=== PATIENT | male | born 1960 | race Caucasian/White ===

== ENCOUNTER 2017-09-15 09:21 | Inpatient (IN) | payer MEDICAID ==
[~2017-09-15] VITALS: Ht 182.9 cm; Wt 91.0 kg
[2017-09-15] MEDS ORDERED: ipratropium/albuterol 3ml nebule NEB ONE (09:50)
[2017-09-15 09:54] LABS: BASOPHILS % (AUTO) 0.6 % (0-1); EOSINOPHILS # (AUTO) 0.1 X10'3 (0-0.9); HEMOGLOBIN 12.8 g/dl (14.0-17.9); LYMPHOCYTES % (AUTO) 13.8 % (21-51); MEAN CORPUSCULAR HGB CONC 33.7 % (33.0-36.5); MEAN PLATELET VOLUME 8.1 FL (7.4-10.4); MONOCYTES # (AUTO) 0.7 X10'3 (0-0.9); MONOCYTES % (AUTO) 9.1 % (2-12); NEUTROPHILS # (AUTO) 5.6 X10'3 (1.8-7.7); NEUTROPHILS % (AUTO) 74.5 % (42-75); PLATELET COUNT 287 X10'3 (140-440); RED BLOOD COUNT 4.41 X10'6 (4.70-6.10); RED CELL DISTRIBUTION WIDTH 14.8 % (11.5-14.5); WHITE BLOOD COUNT 7.4 X10'3 (4.5-11.0)
[2017-09-15 10:09] LABS: ALANINE AMINOTRANSFERASE 39 U/L (12-78); ALBUMIN/GLOBULIN RATIO 0.7 (1.1-1.5); ALKALINE PHOSPHATASE 66 IU/L (46-116); ANION GAP 8 (8-16); ASPARTATE AMINO TRANSFERASE 34 U/L (10-37); BILIRUBIN,TOTAL 0.5 MG/DL (0.1-1.0); BLOOD UREA NITROGEN 28 MG/DL (7-18); BUN/CREATININE RATIO 18.1 (5.4-32.0); CALCIUM 9.2 MG/DL (8.5-10.1); CHLORIDE 105 MMOL/L (99-107); CREATININE 1.55 MG/DL (0.60-1.10); GLUCOSE 124 MG/DL (70-104); POTASSIUM 4.4 MMOL/L (3.5-5.1); SODIUM 140 MMOL/L (135-145); TOTAL CARBON DIOXIDE 26.7 MMOL/L (24-32); TOTAL PROTEIN 7.3 G/DL (6.4-8.2); eGFR 47 ML/MIN
[2017-09-15 10:50] LABS: D-DIMER 1.21 MG/L FEU (0-0.50)
[2017-09-15] MEDS ORDERED: levoFLOXACIN-Levaquin 500mg/D5 100 ML IV ONE (11:40)
[2017-09-15] MEDS ORDERED: levoFLOXACIN-Levaquin 500mg/D5 100 ML IV SCH (12:00)
[2017-09-15] MEDS ORDERED: potassium Cl 40MEQ/NS 500ml 500 ML IV PRN ×2 (12:00)
[2017-09-15] MEDS ORDERED: magnesium 2GM in 50ml NS 50 ML IV PRN (12:00)
[2017-09-15] MEDS ORDERED: ondansetron/PF 4mg/2ml inj IV PRN (12:00)
[2017-09-15] MEDS ORDERED: acetaminophen 325mg tablet PO PRN (12:00)
[2017-09-15] MEDS ORDERED: potassium Cl 20 mEq SR tablet PO PRN ×2 (12:00)
[2017-09-15] MEDS ORDERED: magnesium Cl slow-release 64mg tablet PO PRN (12:00)
[2017-09-15] MEDS ORDERED: mag hydrox/Alum hydrox/simeth 30ml oral suspension PO PRN (12:00)
[2017-09-15] MEDS ORDERED: magnesium 4gm in 100ml NS 100 ML IV PRN (12:00)
[2017-09-15] MEDS ORDERED: magnesium hydroxide 30ml (MOM) UD suspension PO PRN (12:00)
[2017-09-15] MEDS ORDERED: NO HOME MEDS (12:11)
[2017-09-15] MEDS: levoFLOXACIN-Levaquin 500mg/D5 100 ML IV SCH (14:15)
[2017-09-15] MEDS: lisinopril 5mg tablet PO SCH (18:37)
[2017-09-15] MEDS ORDERED: heparin 10,000 units/1 ML INJ IV ONE (18:45)
[2017-09-15] MEDS ORDERED: morphine 4 MG/ML inj SYRINge IV ONE (18:45)
[2017-09-15] MEDS ORDERED: aspirin 81mg tab.chew PO ONE (18:45)
[2017-09-15 19:23] LABS: PARTIAL THROMBOPLASTIN TIME 31 SECONDS (22-32)
[2017-09-15 19:30] VITALS: BP 158/100
[2017-09-15] MEDS: carVEDilol 3.125mg tablet PO SCH (19:51)
[2017-09-15] MEDS: furosemide 40mg/4ml inj IV SCH (19:51)
[2017-09-15] MEDS ORDERED: furosemide 20 MG/2 ML vial IV SCH (20:00)
[2017-09-15] MEDS: heparin, porcine 5000 units/ml vial SQ SCH (20:00)
[2017-09-15 22:01] LABS: URINE AMPHETAMINE SCREEN NEGATIVE (Neg); URINE BARBITUATE SCREEN NEGATIVE (Neg); URINE BENZODIAZEPINES SCREEN NEGATIVE (Neg); URINE CANNABINOID SCREEN NEGATIVE (Neg); URINE COCAINE SCREEN NEGATIVE (Neg); URINE METHADONE SCREEN NEGATIVE (Neg); URINE OPIATE SCREEN POSITIVE (Neg); URINE PHENCYCLIDINE SCREEN NEGATIVE (Neg)
[2017-09-15 23:00] VITALS: BP 134/87
[2017-09-15] MEDS: HYDROcodone/acetaminophen 10/325mg tab PO PRN (23:53)
[2017-09-16 03:00] VITALS: BP 135/87
[2017-09-16 06:00] VITALS: BP 129/97
[2017-09-16 06:04] LABS: BASOPHILS % (AUTO) 0.7 % (0-1); EOSINOPHILS # (AUTO) 0.3 X10'3 (0-0.9); EOSINOPHILS % (AUTO) 4.2 % (0-6); HEMATOCRIT 36.7 % (42.0-52.0); HEMOGLOBIN 12.4 g/dl (14.0-17.9); LYMPHOCYTES # (AUTO) 1.6 X10'3 (1.1-4.8); LYMPHOCYTES % (AUTO) 21.5 % (21-51); MEAN CORPUSCULAR HEMOGLOBIN 29.2 PG (27.0-31.0); MEAN CORPUSCULAR HGB CONC 33.7 % (33.0-36.5); MEAN CORPUSCULAR VOLUME 86.6 FL (78-98); MEAN PLATELET VOLUME 7.9 FL (7.4-10.4); MONOCYTES # (AUTO) 0.7 X10'3 (0-0.9); MONOCYTES % (AUTO) 9.8 % (2-12); NEUTROPHILS # (AUTO) 4.6 X10'3 (1.8-7.7); NEUTROPHILS % (AUTO) 63.8 % (42-75); PLATELET COUNT 281 X10'3 (140-440); RED BLOOD COUNT 4.23 X10'6 (4.70-6.10); RED CELL DISTRIBUTION WIDTH 15.3 % (11.5-14.5); WHITE BLOOD COUNT 7.3 X10'3 (4.5-11.0)
[2017-09-16 06:33] LABS: ALANINE AMINOTRANSFERASE 30 U/L (12-78); ALBUMIN 2.7 G/DL (3.4-5.0); ALBUMIN/GLOBULIN RATIO 0.6 (1.1-1.5); ALKALINE PHOSPHATASE 56 IU/L (46-116); ANION GAP 6 (8-16); ASPARTATE AMINO TRANSFERASE 27 U/L (10-37); BILIRUBIN,TOTAL 0.7 MG/DL (0.1-1.0); BLOOD UREA NITROGEN 23 MG/DL (7-18); BUN/CREATININE RATIO 15.5 (5.4-32.0); CALCIUM 8.5 MG/DL (8.5-10.1); CHLORIDE 104 MMOL/L (99-107); CREATININE 1.48 MG/DL (0.60-1.10); GLUCOSE 115 MG/DL (70-104); MAGNESIUM 1.7 MG/DL (1.5-2.4); POTASSIUM 3.8 MMOL/L (3.5-5.1); SODIUM 140 MMOL/L (135-145); TOTAL CARBON DIOXIDE 29.9 MMOL/L (24-32); TOTAL PROTEIN 6.9 G/DL (6.4-8.2); eGFR 49 ML/MIN
[2017-09-16] MEDS: carVEDilol 3.125mg tablet PO SCH ×2 (07:45→20:23)
[2017-09-16] MEDS: furosemide 40mg/4ml inj IV SCH ×2 (07:45→20:28)
[2017-09-16] MEDS: lisinopril 5mg tablet PO SCH (07:45)
[2017-09-16] MEDS: levoFLOXACIN-Levaquin 500mg/D5 100 ML IV SCH (07:46)
[2017-09-16] MEDS: HYDROcodone/acetaminophen 10/325mg tab PO PRN ×3 (07:54→20:35)
[2017-09-16] MEDS: heparin, porcine 5000 units/ml vial SQ SCH ×2 (08:00→20:28)
[2017-09-16] MEDS: K and/or MAG REPLACEMENT MC SCH (08:00)
[2017-09-16 11:00] VITALS: BP 121/85
[2017-09-16 15:00] VITALS: BP 109/76
[2017-09-16 19:15] VITALS: BP 119/81
[2017-09-16] MEDS: lactobacillus rhamnosus 10,000 MMU CELLS/CAPSULE PO SCH (20:23)
[2017-09-16 22:31] VITALS: BP 116/81
[2017-09-17 03:46] VITALS: BP 113/75
[2017-09-17] MEDS: HYDROcodone/acetaminophen 10/325mg tab PO PRN ×3 (03:58→17:55)
[2017-09-17 06:00] VITALS: BP 113/78
[2017-09-17 06:40] LABS: BASOPHILS % (AUTO) 0.6 % (0-1); EOSINOPHILS # (AUTO) 0.3 X10'3 (0-0.9); EOSINOPHILS % (AUTO) 4.1 % (0-6); HEMATOCRIT 38.4 % (42.0-52.0); LYMPHOCYTES # (AUTO) 1.1 X10'3 (1.1-4.8); LYMPHOCYTES % (AUTO) 15.2 % (21-51); MEAN CORPUSCULAR HEMOGLOBIN 29.1 PG (27.0-31.0); MEAN CORPUSCULAR HGB CONC 33.9 % (33.0-36.5); MEAN PLATELET VOLUME 8.4 FL (7.4-10.4); MONOCYTES # (AUTO) 0.9 X10'3 (0-0.9); MONOCYTES % (AUTO) 12.4 % (2-12); NEUTROPHILS # (AUTO) 4.8 X10'3 (1.8-7.7); NEUTROPHILS % (AUTO) 67.7 % (42-75); PLATELET COUNT 301 X10'3 (140-440); RED BLOOD COUNT 4.46 X10'6 (4.70-6.10); RED CELL DISTRIBUTION WIDTH 15.4 % (11.5-14.5); WHITE BLOOD COUNT 7.2 X10'3 (4.5-11.0)
[2017-09-17 07:06] LABS: ALANINE AMINOTRANSFERASE 34 U/L (12-78); ALBUMIN 2.8 G/DL (3.4-5.0); ALBUMIN/GLOBULIN RATIO 0.7 (1.1-1.5); ALKALINE PHOSPHATASE 59 IU/L (46-116); ANION GAP 6 (8-16); ASPARTATE AMINO TRANSFERASE 23 U/L (10-37); BILIRUBIN,TOTAL 0.5 MG/DL (0.1-1.0); BLOOD UREA NITROGEN 32 MG/DL (7-18); BUN/CREATININE RATIO 19.9 (5.4-32.0); CALCIUM 8.6 MG/DL (8.5-10.1); CHLORIDE 102 MMOL/L (99-107); CREATININE 1.61 MG/DL (0.60-1.10); GLUCOSE 104 MG/DL (70-104); MAGNESIUM 1.9 MG/DL (1.5-2.4); POTASSIUM 3.8 MMOL/L (3.5-5.1); SODIUM 140 MMOL/L (135-145); TOTAL CARBON DIOXIDE 31.6 MMOL/L (24-32); TOTAL PROTEIN 7.1 G/DL (6.4-8.2); eGFR 45 ML/MIN
[2017-09-17] MEDS: lisinopril 5mg tablet PO SCH (07:37)
[2017-09-17] MEDS: lactobacillus rhamnosus 10,000 MMU CELLS/CAPSULE PO SCH ×2 (07:37→19:47)
[2017-09-17] MEDS: carVEDilol 3.125mg tablet PO SCH ×2 (07:37→19:47)
[2017-09-17] MEDS: heparin, porcine 5000 units/ml vial SQ SCH ×2 (07:38→20:00)
[2017-09-17] MEDS: furosemide 40mg/4ml inj IV SCH ×2 (07:38→19:52)
[2017-09-17] MEDS: levoFLOXACIN-Levaquin 500mg/D5 100 ML IV SCH (07:38)
[2017-09-17] MEDS: K and/or MAG REPLACEMENT MC SCH (08:00)
[2017-09-17 11:00] VITALS: BP 109/74
[2017-09-17 15:00] VITALS: BP 118/82
[2017-09-17] MEDS: nicotine 21mg patch - 24 hr TD SCH (16:27)
[2017-09-17] MEDS ORDERED: LORazepam 2 mg/ml vial IV ONE (18:50)
[2017-09-17 19:00] VITALS: BP 113/74
[2017-09-17] MEDS ORDERED: sodium bicarbonate (8.4%) inj. 150 MEQ in sodium chloride 0.45% 1,000 ML IV SCH (20:10)
[2017-09-17] MEDS: acetylcysteine 200 MG/ml 4ml vial PO SCH (22:06)
[2017-09-17 23:18] VITALS: BP 90/65
[2017-09-18] VITALS (13 sets, daily range): BP systolic 91–127; BP diastolic 51–87
[2017-09-18] MEDS: HYDROcodone/acetaminophen 10/325mg tab PO PRN ×4 (00:47→20:12)
[2017-09-18 06:09] LABS: BASOPHILS # (AUTO) 0.1 X10'3 (0-0.2); BASOPHILS % (AUTO) 0.7 % (0-1); EOSINOPHILS # (AUTO) 0.2 X10'3 (0-0.9); EOSINOPHILS % (AUTO) 2.9 % (0-6); HEMATOCRIT 42.4 % (42.0-52.0); HEMOGLOBIN 13.9 g/dl (14.0-17.9); LYMPHOCYTES # (AUTO) 1.3 X10'3 (1.1-4.8); MEAN CORPUSCULAR HEMOGLOBIN 28.7 PG (27.0-31.0); MEAN CORPUSCULAR HGB CONC 32.9 % (33.0-36.5); MEAN CORPUSCULAR VOLUME 87.2 FL (78-98); MEAN PLATELET VOLUME 7.9 FL (7.4-10.4); MONOCYTES # (AUTO) 0.8 X10'3 (0-0.9); MONOCYTES % (AUTO) 10.8 % (2-12); NEUTROPHILS % (AUTO) 67.6 % (42-75); PLATELET COUNT 340 X10'3 (140-440); RED BLOOD COUNT 4.86 X10'6 (4.70-6.10); RED CELL DISTRIBUTION WIDTH 14.9 % (11.5-14.5); WHITE BLOOD COUNT 7.4 X10'3 (4.5-11.0)
[2017-09-18 06:37] LABS: ALANINE AMINOTRANSFERASE 32 U/L (12-78); ALBUMIN 3.1 G/DL (3.4-5.0); ALBUMIN/GLOBULIN RATIO 0.7 (1.1-1.5); ALKALINE PHOSPHATASE 60 IU/L (46-116); ANION GAP 7 (8-16); ASPARTATE AMINO TRANSFERASE 23 U/L (10-37); BILIRUBIN,TOTAL 0.6 MG/DL (0.1-1.0); BLOOD UREA NITROGEN 35 MG/DL (7-18); BUN/CREATININE RATIO 20.8 (5.4-32.0); CALCIUM 9.1 MG/DL (8.5-10.1); CHLORIDE 98 MMOL/L (99-107); CREATININE 1.68 MG/DL (0.60-1.10); GLUCOSE 107 MG/DL (70-104); MAGNESIUM 2.1 MG/DL (1.5-2.4); POTASSIUM 3.9 MMOL/L (3.5-5.1); SODIUM 138 MMOL/L (135-145); TOTAL CARBON DIOXIDE 32.8 MMOL/L (24-32); TOTAL PROTEIN 7.6 G/DL (6.4-8.2); eGFR 42 ML/MIN
[2017-09-18] MEDS: nicotine 21mg patch - 24 hr TD SCH (07:07)
[2017-09-18] MEDS: lactobacillus rhamnosus 10,000 MMU CELLS/CAPSULE PO SCH ×2 (07:08→20:11)
[2017-09-18] MEDS: furosemide 40mg/4ml inj IV SCH ×2 (07:08→20:17)
[2017-09-18] MEDS: lisinopril 5mg tablet PO SCH (07:08)
[2017-09-18] MEDS: carVEDilol 3.125mg tablet PO SCH ×2 (07:08→20:10)
[2017-09-18] MEDS: K and/or MAG REPLACEMENT MC SCH (08:00)
[2017-09-18] MEDS: heparin, porcine 5000 units/ml vial SQ SCH ×2 (08:00→20:24)
[2017-09-18] MEDS: acetylcysteine 200 MG/ml 4ml vial PO SCH ×2 (09:35→20:14)
[2017-09-18] MEDS ORDERED: LIDOcaine/PRILOcaine 5gm cream TP SCH (09:55)
[2017-09-18] MEDS ORDERED: nitroGLYCERIN-Tridil 50MG/D5W 250 ML IV ONE (10:44)
[2017-09-18] MEDS ORDERED: verapamil 2.5 mg/ml inj IV ONE (10:45)
[2017-09-18] MEDS ORDERED: iohexol 350 MG/ML 50ML vial IV ONE (10:45)
[2017-09-18] MEDS ORDERED: heparin 1,000unit/ml 10ml vial 10 ML ONE (10:45)
[2017-09-18] MEDS ORDERED: iohexol 350MG/ML 100ml bottle IV ONE (10:45)
[2017-09-18] MEDS ORDERED: LIDOcaine 1%/PF (10mg/ml) 5ml vial ONE (10:46)
[2017-09-18] MEDS ORDERED: midazolam 2 mg/2 ml injection ONE (11:12)
[2017-09-18] MEDS: levoFLOXACIN 500mg tablet PO SCH (13:31)
[2017-09-18] MEDS: spironolactone 25 MG tablet PO SCH (13:31)
[2017-09-18 13:46] LABS: ISTAT HGB ART 14.6 g/dl (14.0-18.0); ISTAT Hct ART 43 %PCV (42-52); ISTAT O2 SATURATION ARTERIAL 90 % (95-98); ISTAT SOURCE ART
[2017-09-18 13:46] LABS: ISTAT Hct MIX 43 %PCV (42-52); ISTAT O2 SATURATION MIX VENOUS 60 % (60-80); ISTAT SOURCE MIX
[2017-09-18] MEDS ORDERED: LEVO500T89 PO (14:52)
[2017-09-18] MEDS ORDERED: NICO-687 TD (14:52)
[2017-09-18] MEDS ORDERED: CITA20TA11 PO (14:52)
[2017-09-18] MEDS ORDERED: COR3.125T PO (14:52)
[2017-09-18] MEDS ORDERED: LISI-604 PO (14:52)
[2017-09-18] MEDS ORDERED: LACT1CAP26 PO (14:52)
[2017-09-18] MEDS ORDERED: SPIR25TA3 PO (14:52)
[2017-09-18] MEDS ORDERED: FURO10VI51 PO (14:52)
[2017-09-18] MEDS ORDERED: GABA300C PO (14:59)
[2017-09-18] MEDS ORDERED: sodium bicarbonate (8.4%) inj. 150 MEQ in sodium chloride 0.45% 1,000 ML IV SCH (16:00)
[2017-09-19 03:00] VITALS: BP 117/76
[2017-09-19 06:00] VITALS: BP 136/86
[2017-09-19 06:58] LABS: BASOPHILS # (AUTO) 0.1 X10'3 (0-0.2); BASOPHILS % (AUTO) 0.8 % (0-1); EOSINOPHILS # (AUTO) 0.2 X10'3 (0-0.9); EOSINOPHILS % (AUTO) 2.9 % (0-6); HEMATOCRIT 41.8 % (42.0-52.0); LYMPHOCYTES # (AUTO) 1.3 X10'3 (1.1-4.8); LYMPHOCYTES % (AUTO) 19.5 % (21-51); MEAN CORPUSCULAR HEMOGLOBIN 28.9 PG (27.0-31.0); MEAN CORPUSCULAR HGB CONC 33.5 % (33.0-36.5); MEAN CORPUSCULAR VOLUME 86.1 FL (78-98); MEAN PLATELET VOLUME 7.5 FL (7.4-10.4); MONOCYTES # (AUTO) 0.9 X10'3 (0-0.9); MONOCYTES % (AUTO) 13.5 % (2-12); NEUTROPHILS # (AUTO) 4.3 X10'3 (1.8-7.7); NEUTROPHILS % (AUTO) 63.3 % (42-75); PLATELET COUNT 342 X10'3 (140-440); RED BLOOD COUNT 4.86 X10'6 (4.70-6.10); RED CELL DISTRIBUTION WIDTH 15.1 % (11.5-14.5); WHITE BLOOD COUNT 6.8 X10'3 (4.5-11.0)
[2017-09-19 07:28] LABS: ALANINE AMINOTRANSFERASE 28 U/L (12-78); ALBUMIN 2.8 G/DL (3.4-5.0); ALBUMIN/GLOBULIN RATIO 0.6 (1.1-1.5); ALKALINE PHOSPHATASE 59 IU/L (46-116); ANION GAP 9 (8-16); ASPARTATE AMINO TRANSFERASE 21 U/L (10-37); BILIRUBIN,TOTAL 0.3 MG/DL (0.1-1.0); BLOOD UREA NITROGEN 29 MG/DL (7-18); BUN/CREATININE RATIO 17.9 (5.4-32.0); CALCIUM 8.4 MG/DL (8.5-10.1); CHLORIDE 99 MMOL/L (99-107); CHOL/HDL RATIO 3.3 (0.00-4.99); CHOLESTEROL 135 MG/DL (0-200); CREATININE 1.62 MG/DL (0.60-1.10); GLUCOSE 141 MG/DL (70-104); HDL CHOLESTEROL 41 MG/DL (35-60); LDL CHOLESTEROL 73 MG/DL (50-100); MAGNESIUM 2.1 MG/DL (1.5-2.4); POTASSIUM 3.8 MMOL/L (3.5-5.1); SODIUM 139 MMOL/L (135-145); TOTAL CARBON DIOXIDE 30.7 MMOL/L (24-32); TOTAL PROTEIN 7.3 G/DL (6.4-8.2); TRIGLYCERIDES 135 MG/DL (20-135); eGFR 44 ML/MIN
[2017-09-19] MEDS: K and/or MAG REPLACEMENT MC SCH (08:00)
[2017-09-19] MEDS: lisinopril 5mg tablet PO SCH (08:18)
[2017-09-19] MEDS: spironolactone 25 MG tablet PO SCH (08:18)
[2017-09-19] MEDS: lactobacillus rhamnosus 10,000 MMU CELLS/CAPSULE PO SCH (08:19)
[2017-09-19] MEDS: carVEDilol 3.125mg tablet PO SCH (08:19)
[2017-09-19] MEDS: HYDROcodone/acetaminophen 10/325mg tab PO PRN (08:20)
[2017-09-19] MEDS: furosemide 40mg/4ml inj IV SCH (08:23)
[2017-09-19] MEDS: nicotine 21mg patch - 24 hr TD SCH (08:23)
[2017-09-19] MEDS: acetylcysteine 200 MG/ml 4ml vial PO SCH (08:24)
[2017-09-19] MEDS: heparin, porcine 5000 units/ml vial SQ SCH (08:24)
[2017-09-19 11:00] VITALS: BP 124/81
[2017-09-19] MEDS: levoFLOXACIN 500mg tablet PO SCH (11:03)
[2017-09-19] MEDS ORDERED: gabapentin 300mg capsule PO ONE (12:25)
[2017-09-19] MEDS ORDERED: citalopram 20mg tablet PO ONE (12:25)
[2017-09-19 15:00] VITALS: BP 110/63
[2017-09-19] MEDS ORDERED: FURO40TA4 PO (19:04)
== END 2017-09-19 20:24 | disposition home or self-care (01) | DRG 192 ==
LOC: ER 09:21 → ED HOLD 11:59 → PCU 3S 19:34
PROVIDERS: ADMIT Internal Medicine; ATTEND Legal Medicine
PROC: 4A023N8 Measurement of Cardiac Sampling and Pressure, Bilateral, Percutaneous Approach (ICD-10-PCS; principal; 2017-09-18)
PROC: B2111ZZ Fluoroscopy of Multiple Coronary Arteries using Low Osmolar Contrast (ICD-10-PCS; 2017-09-18)
PROC: B2151ZZ Fluoroscopy of Left Heart using Low Osmolar Contrast (ICD-10-PCS; 2017-09-18)
DX: I11.0 Hypertensive heart disease with heart failure (principal); J18.9 Pneumonia, unspecified organism; N17.9 Acute kidney failure, unspecified; I50.21 Acute systolic (congestive) heart failure; I24.8 Other forms of acute ischemic heart disease; M79.602 Pain in left arm; D17.79 Benign lipomatous neoplasm of other sites; I25.10 Atherosclerotic heart disease of native coronary artery without angina pectoris; F41.9 Anxiety disorder, unspecified; F15.10 Other stimulant abuse, uncomplicated; F17.210 Nicotine dependence, cigarettes, uncomplicated; I42.0 Dilated cardiomyopathy; J44.0 Chronic obstructive pulmonary disease with (acute) lower respiratory infection; Z80.0 Family history of malignant neoplasm of digestive organs; Z82.5 Family history of asthma and other chronic lower respiratory diseases
CPT/HCPCS: 36415; 71046; 73030; 73221; 80053; 80061; 80305; 82803; 83605; 83735; 83880; 84484; 85014; 85025; 85379; 85730; 87040; 87070; 93306; 93460; 94640; 94760; 99152; 99153; 99285; A4620; A6257; A6258; C1769; J1644; J1940; J1956; J2001; J2060; J2250; J2270; J3490; Q9967

== ENCOUNTER 2023-09-27 20:11 | Emergency (ER) | payer MEDICAID ==
[~2023-09-27] VITALS: Ht 185.4 cm; Wt 99.9 kg
[~2023-09-27 20:11] MED LIST: COR3.125T PO; GABA300C PO; LACT1CAP26 PO; LEVO-65 PO; LISI5TAB22 PO; NICO-687 TD; SPIR25TA5 PO
[2023-09-27 20:21] VITALS: TEMP 98.3
[2023-09-27 20:40] LABS: BASOPHILS # (AUTO) 0.1 X10'3 (0-0.2); BASOPHILS % (AUTO) 0.7 % (0-1); EOSINOPHILS # (AUTO) 0.2 X10'3 (0-0.9); EOSINOPHILS % (AUTO) 1.9 % (0-6); HEMATOCRIT 35.1 % (42.0-52.0); HEMOGLOBIN 11.4 g/dl (14.0-17.9); LYMPHOCYTES # (AUTO) 0.6 X10'3 (1.1-4.8); LYMPHOCYTES % (AUTO) 8.1 % (21-51); MEAN CORPUSCULAR HEMOGLOBIN 27.7 PG (27.0-31.0); MEAN CORPUSCULAR HGB CONC 32.5 g/dL (33.0-36.5); MEAN CORPUSCULAR VOLUME 85.2 FL (78-98); MEAN PLATELET VOLUME 6.8 FL (7.4-10.4); MONOCYTES # (AUTO) 0.5 X10'3 (0-0.9); MONOCYTES % (AUTO) 6.6 % (2-12); NEUTROPHILS # (AUTO) 6.4 X10'3 (1.8-7.7); NEUTROPHILS % (AUTO) 82.7 % (42-75); PLATELET COUNT 279 X10'3 (140-440); RED BLOOD COUNT 4.11 X10'6 (4.70-6.10); RED CELL DISTRIBUTION WIDTH 16.8 % (11.5-14.5); WHITE BLOOD COUNT 7.8 X10'3 (4.5-11.0)
[2023-09-27 20:48] LABS: ALBUMIN 3.8 G/DL (3.4-5.0); ANION GAP 9 (8-16); BLOOD UREA NITROGEN 31 MG/DL (7-18); CALCIUM 9.2 MG/DL (8.5-10.1); CHLORIDE 99 MMOL/L (99-107); CREATININE 2.38 MG/DL (0.60-1.10); GLUCOSE 127 MG/DL (70-104); LIPASE 11 U/L (16-77); SODIUM 135 MMOL/L (135-145); TOTAL CARBON DIOXIDE 26.9 MMOL/L (24-32); eCRCL 36 ML/MIN; eGFR 28 ML/MIN
[2023-09-27] MEDS: ondansetron/PF 4mg/2ml inj IV ONE (22:00)
[2023-09-27] MEDS ORDERED: LEVO-65 PO (22:00)
[2023-09-27] MEDS: morphine 4 MG/ML inj SYRINge IV ONE (22:00)
[2023-09-27] MEDS: normal saline 1000ML IV soln IVB ONE (22:00)
[2023-09-27] MEDS: LIDOcaine 2% jelly 6ml syringe ***for topical use only MM ONE (22:25)
[2023-09-27] MEDS: LidoCAINE 2% Topical Jelly 11mL syringe (UROJET) MM ONE (22:26)
[2023-09-27 22:41] VITALS: PULSE 67; RESP 16; O2SAT 98
[2023-09-27 22:45] VITALS: BP 128/82
[2023-09-27 22:51] LABS: BILIRUBIN,URINE NEGATIVE (Neg); CLARITY,URINE CLEAR (Clear); COLOR,URINE YELLOW (Yellow); GLUCOSE, URINE NEGATIVE (Neg); KETONES,URINE NEGATIVE (Neg); LEUKOCYTE ESTERASE ,URINE NEGATIVE (Neg); NITRITES, URINE NEGATIVE (Neg); OCCULT BLOOD,URINE SMALL (Neg); PROTEIN,URINE 100 mg/dl (Neg); UA COLLECTION TYPE CLN CATCH MIDSTREAM; UROBILINOGEN,URINE 0.2 E.U/dL (0.2-1.0)
[2023-09-27] MEDS ORDERED: CEPH-585 PO (22:56)
[2023-09-27 22:58] LABS: HYALINE CASTS 0-3 /LPF (NEGATIVE); MUCUS STRANDS FEW /LPF (Neg); SQUAMOUS EPITHELIAL CELL,UR FEW /LPF (FEW)
[2023-09-27 22:59] LABS: RENAL CELLS, URINE FEW /HPF
[2023-09-27 23:00] LABS: BACTERIA,URINE FEW /HPF (Neg); TRANSITIONAL EPI CELLS,URINE FEW /HPF; WBC,URINE 0-4 /HPF (0-4)
== END 2023-09-27 23:08 | disposition home or self-care (01) ==
LOC: ER 20:11
DX: R30.0 Dysuria (principal); R11.0 Nausea; Z79.899 Other long term (current) drug therapy; Z79.2 Long term (current) use of antibiotics
CPT/HCPCS: 36415; 74176; 76870; 80048; 81001; 83690; 84145; 85025; 93976; 96361; 96374; 96375; 99285; J2270; J2405; J7030; C1758